=== PATIENT | female | born 1955 | race Caucasian/White ===

== ENCOUNTER → 2022-05-29 | Outpatient (CLI) | payer MEDICARE ==
[2022-05-29 14:25] LABS: HEMOGLOBIN 14.6 gm/dl (12.3-15.3); RED BLOOD COUNT 4.9 M/UL (4.00-5.10); WHITE BLOOD COUNT 6.3 K/UL (4.5-11.0)
[2022-05-29 14:51] LABS: BUN/CREATININE RATIO 19 (0-10)
[2022-05-30 07:10] LABS: VITAMIN D, 25-HYDROXY 96.7 ng/mL (30.0-100.0)
[2022-06-01 16:11] LABS: SARS-COV-2 SEMI-QUANT TOTAL AB See Dilution U/mL (Negative<0.8); SARS-COV-2 SPIKE AB DILUTION 2767 U/mL (Negative<0.8); SARS-COV-2 SPIKE AB INTERP Positive (.)
== END ==
LOC: LAB 13:53
PROVIDERS: Nurse Practitioner Family
DX: Z01.84 Encounter for antibody response examination (principal); E03.9 Hypothyroidism, unspecified; J30.9 Allergic rhinitis, unspecified; R63.0 Anorexia; M25.50 Pain in unspecified joint; H69.80 Other specified disorders of Eustachian tube, unspecified ear; R53.83 Other fatigue; K21.9 Gastro-esophageal reflux disease without esophagitis; R07.9 Chest pain, unspecified; E78.5 Hyperlipidemia, unspecified; I10 Essential (primary) hypertension; E53.8 Deficiency of other specified B group vitamins; E55.9 Vitamin D deficiency, unspecified; R06.00 Dyspnea, unspecified
CPT/HCPCS: 36415; 80053; 80061; 81001; 82607; 84439; 84443; 85025